=== PATIENT | female | born 1940 | race Caucasian/White ===

== ENCOUNTER 2017-04-06 06:43 | Day surgery (SDC) | payer OTHER ==
[~2017-04-06 06:43] MED LIST: AMBIEN5 MG; AMBIEN5 MG PO; CIPRO500 MG PO; NORVASC5 MG PO; SYNTH PO; ZANTAC300 MG PO
== END 2017-04-06 17:29 | disposition home or self-care (01) ==
LOC: CIR.AMB 06:43
DX: D05.11 Intraductal carcinoma in situ of right breast (principal)